=== PATIENT | female | born 1985 | race Caucasian/White ===

== ENCOUNTER → 2024-04-16 | Outpatient (REF) | payer OTHER ==
[2024-04-16 18:36] LABS: C REACTIVE PROTEIN QUANTITATIV 1.1 MG/DL (<1.0)
== END ==
LOC: M PLALAB 17:51
PROVIDERS: ATTEND Internal Medicine Hematology
DX: I82.502 Chronic embolism and thrombosis of unspecified deep veins of left lower extremity (principal)

== ENCOUNTER → 2024-08-21 | Outpatient (CLI) | payer OTHER | LOC: M PLALAB 16:13 | PROVIDERS: ATTEND Internal Medicine Hematology | DX: I82.502 Chronic embolism and thrombosis of unspecified deep veins of left lower extremity (principal) ==

== ENCOUNTER → 2024-11-07 | Outpatient (CLI) | payer OTHER ==
[~2024-11-07] MED LIST: METHACHOLINE KIT (6 VIAL.NEB PREMIX) INH ONE
== END ==
LOC: M CARPUL 08:13
PROVIDERS: ATTEND Nurse Practitioner Adult Health
DX: R06.02 Shortness of breath (principal)
CPT/HCPCS: 94070; 95070; J7674

== ENCOUNTER → 2024-12-05 | Outpatient (CLI) | payer OTHER | LOC: M RAD 07:11 | PROVIDERS: ATTEND Nurse Practitioner Adult Health | DX: R91.8 Other nonspecific abnormal finding of lung field (principal); R06.02 Shortness of breath ==